=== PATIENT | male | born 1985 | race Caucasian/White ===

== ENCOUNTER → 2020-12-24 | Outpatient (REF) ==
--- NOTE | 2020-12-24 12:28 | REP ---
INDICATION: DDD COMPARISON: None. TECHNIQUE: Four views right knee. FINDINGS: There is no evidence of acute fracture, dislocation, or intrinsic bone disease.There is slight narrowing of the medial joint space. There is no radiographic evidence of a significant joint effusion. IMPRESSION: No fracture or dislocation. Very mild medial joint space narrowing. <Electronically signed by Raheem Rosario > 12/24/20 [id number]
== END ==
LOC: M RAD 10:59
PROVIDERS: ATTEND Internal Medicine
DX: M54.5 Low back pain (principal)

== ENCOUNTER → 2021-08-21 | Outpatient (REF) | payer OTHER | LOC: M LAB REF 13:20 | PROVIDERS: ATTEND Ophthalmology | DX: D23.112 Other benign neoplasm of skin of right lower eyelid, including canthus (principal); D23.122 Other benign neoplasm of skin of left lower eyelid, including canthus ==